=== PATIENT | male | born 1965 | race Caucasian/White ===

== ENCOUNTER 2023-06-27 12:32 | Observation (INO) ==
[2023-06-27] MEDS ORDERED: SODIUM CHLORIDE 0.9% 1000ML 2,000 ML IV ONE (13:00)
--- NOTE | 2023-06-27 13:03 | Emergency Department Note ---
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 He notes he felt fine this morning although he was a little tired. He was sitting on a zero turn and does not remember anything after that. He denies any chest pain or shortness of breath preceding this. Bystanders note that he was diaphoretic and sweaty when he passed out. Currently has no chest pain or shortness of breath. No belly pain, nausea, vomiting, or diarrhea. No dysuria, urgency, or frequency. He is a smoker. No history of diabetes, hypertension or hyperlipidemia. Previous history of a CVA. PAST MEDICAL HISTORY:See Below PAST SURGICAL HISTORY:See Below FAMILY HISTORY:See Below SOCIAL HISTORY:See Below HOME MEDICATIONS:See Below ALLERGIES:See Below VITALS:See Below PHYSICAL EXAMINATION: GENERAL: Sitting up in bed, alert, chronically ill-appearing, disheveled EYE EXAM: normal conjunctiva. PERRL and EOM's intact. OROPHARYNX: no exudate, no erythema, lips, buccal mucosa, and tongue normal and mucous membranes are moist NECK: supple, no nuchal rigidity, no adenopathy, non-tender LUNGS: Clear to auscultation. Normal chest wall mechanics HEART: no murmurs, S1 normal and S2 normal ABDOMEN: abdomen soft, non-tender, normo-active bowel sounds, no masses, no rebound or guarding. UPPER EXTREMITIES: upper extremities are grossly normal. LOWER EXTREMITIES: No pitting edema. NEURO EXAM: Normal sensorium, cranial nerves II-XII intact, normal speech, no weakness of arms, no weakness of legs. No drift. Finger to nose intact. Gross sensation intact. MEDICAL DECISION MAKING: Patient is a 58-year-old male who presents ER for above-stated complaint. IV was established blood work was obtained. Labs show mild leukocytosis 11.4 thousand. Hemoglobin of 20. BMP with a sodium of 134 and mild hypokalemia 3.2. Creatinine at 1.9 up from baseline of 0.8. T. bili elevated at 1.9. No belly pain. LFTs were unremarkable. Lipase normal. Tox was negative. Patient was given 2 L of IV fluids. He was updated bedside. He was hypoxic upon presentation was placed on 2 L nasal cannula. Chest x-ray was clean. With a negative chest x-ray and hypoxia did question DVT and consequently duplex was obtained which was negative. Unable to CT angio with a creatinine of 2. He was updated and admitted to the hospital service Dr. Harry Downey for further evaluation management treatment. Triage Nursing notes reviewed. Limited review of prior medical records performed Vital Signs: reviewed and remarkable for no significant abnormalities Differential diagnosis: Differential diagnoses includes but is not limited to pneumonia, bronchitis, COPD/Asthma exacerbation, pneumothorax, pulmonary embolism, congestive heart failure, acute coronary syndrome ER treatment provided: See below Diagnostics interpreted by me include EKG and cardiac monitoring as listed below: -Cardiac Monitoring: An order was placed for continuous cardiac monitoring. The monitor shows a rate of 90 with sinus rhythm. -ECG: Sinus tachycardia rate of 100 Septal Q waves QTc 448 -Laboratory studies:Interpreted by me as stated above in MDM and shown below. Imaging studies: Xrays: As interpreted by me: Portable AP upright 1 view of the chest shows no focal CTs show: CT of the head was negative Ultrasound venous shows no DVTs bilaterally Consultation(s): As described in [facility] Procedures:none Critical Care: I have personally spent 35 minutes of critical care time in the direct management of this patient. This includes bedside care, interpretation of diagnostic studies, and testing, discussion with consultants, patient, and family members, and other required patient management activities. This 35 minutes is in excess of all separately billable procedures. Past Med/Surg History Medical History (Updated 06/27/23 @ 19:03 by Maximo Gallegos DO) Chronic bronchitis COPD (chronic obstructive pulmonary disease) Current smoker CVA (cerebral vascular accident) Surgical History No significant past surgical history Family History (Updated 08/09/20 @ 08:27 by TONY El) Father Arthritis Hypertension Diabetes Other Allergies Cancer Denies family history of Heart disease Lung disease Asthma Social History Smoking Status: Never smoker Tobacco Type: Cigarettes packs per day: 1; Hx Alcohol Use: No Hx Substance Use: No Preferred Language: Uzbek Feels Safe at Home: Yes Allergies Allergies Allergy/AdvReac Type Severity Reaction Status Date / Time pollen extracts Allergy Unknown Unknown Verified 06/27/23 15:35 Sulfa (Sulfonamide Allergy Unknown Unknown Verified 06/27/23 15:35 Antibiotics) Home Meds Home Medications Medication Instructions Recorded Confirmed Potassium Otc 1 tab PO DAILY 06/27/23 06/27/23 albuterol sulfate 90 mcg/actuation 2 puff inhalation Q6 PRN Shortness 06/27/23 06/27/23 aerosol inhaler Of Breath Or Wheezing cholecalciferol (vitamin D3) 50 0 mcg PO DAILY 06/27/23 06/27/23 mcg (2,000 unit) tablet (Vitamin D3) ibuprofen 200 mg tablet 400 mg PO Q6H PRN Pain 06/27/23 06/27/23 multivitamin 1 tab PO DAILY 06/27/23 06/27/23 Results & Data (ED) Vital Signs Vital Signs - 24 hr 06/27/23 12:38 06/27/23 12:43 06/27/23 12:56 Temperature 36.8 C Temperature Source Oral Pulse Rate 101 H 103 H Pulse Rate [Apical] Pulse Rhythm Regular Pulse Rhythm [Apical] Pulse Strength Normal Pulse Strength [Apical] Respiratory Rate 20 Respiratory Effort / Characteristics Non-Labored Spontaneous Respiratory Depth Normal Respiratory Pattern Regular Blood Pressure 130/90 Blood Pressure [Right Arm] Blood Pressure Mean 103 Blood Pressure Mean [Right Arm] Blood Pressure Position Sitting Blood Pressure Position [Right Arm] Pulse Oximetry 92 Oxygen Delivery Method Room Air Nasal Cannula Oxygen Flow Rate Sepsis Recent Fever Within 48 Hours No Sepsis New/Unexplained Change in Mental Status No Sepsis Action Taken by Nursing No Action Required 06/27/23 12:56 06/27/23 15:04 06/27/23 16:14 Temperature 36.3 C L Temperature Source Oral Pulse Rate Pulse Rate [Apical] 94 H 84 83 Pulse Rhythm Pulse Rhythm [Apical] Regular Regular Regular Pulse Strength Pulse Strength [Apical] Normal Normal Normal Respiratory Rate 20 20 20 Respiratory Effort / Characteristics Non-Labored Spontaneous Non-Labored Spontaneous Non-Labored Spontaneous Respiratory Depth Normal Normal Normal Respiratory Pattern Regular Regular Blood Pressure Blood Pressure [Right Arm] 113/77 128/87 129/88 Blood Pressure Mean Blood Pressure Mean [Right Arm] 89 100 101 Blood Pressure Position Blood Pressure Position [Right Arm] Sitting Sitting Pulse Oximetry 92 97 95 Oxygen Delivery Method Nasal Cannula Nasal Cannula Nasal Cannula Oxygen Flow Rate 2 2 2 Sepsis Recent Fever Within 48 Hours Sepsis New/Unexplained Change in Mental Status Sepsis Action Taken by Nursing Laboratory Data 06/27/23 12:45 06/27/23 12:45 Lab Results 06/27/23 06/27/23 06/27/23 Range/Units 12:45 12:45 15:51 WBC 11.49 H (4.8-10.8) K/ul RBC 5.20 (4.70-6.10) M/uL Hgb 20.0 H (14.0-18.0) g/dl Hct 55.1 H (42.0-52.0) % MCV 106.0 H (80.0-100.0) fL MCH 38.5 H (25.0-34.0) pg MCHC 36.3 H (32.0-36.0) g/dL RDW Std Deviation 58.5 H (36.4-46.3) fL RDW Coeff of Mayra 14.9 H (11.5-14.5) % Plt Count 203 (130-400) K/uL MPV 10.6 (9.4-12.4) fL Immature Gran % (Auto) 0.3 % Neut % (Auto) 64.4 % Lymph % (Auto) 23.8 % Hart % (Auto) 9.2 % Eos % (Auto) 1.4 % Baso % (Auto) 0.9 % Neut # (Auto) 7.40 H (1.40-6.50) K/uL Lymph # (Auto) 2.73 (1.2-3.4) K/uL Hart # (Auto) 1.06 H (0.11-0.59) K/uL Eos # (Auto) 0.16 (0-0.50) K/uL Baso # (Auto) 0.10 (0-0.2) K/uL Immature Gran # (Auto) 0.04 (0.01-0.20) K/uL Sodium 134 L (136-145) mmol/L Potassium 3.2 L (3.5-5.1) mmol/L Chloride 93 L (98-107) mmol/L Carbon Dioxide 22 (21-32) mmol/L Anion Gap 19 H (3-11) BUN 11 (6-23) mg/dl Creatinine 1.95 H (0.6-1.4) mg/dl Est Cr Clr Drug Dosing Not Reportable Est GFR ( Amer) 42.1 ml/min Est GFR (Non-Af Amer) 36.3 ml/min BUN/Creatinine Ratio 5.6 L (10-20) Glucose 152 H (70-99(Fasting)) mg/dl Lactate (0.4-2.0) mmol/L Calcium 9.8 (8.6-10.3) mg/dl Total Bilirubin 1.9 H (0.2-1.0) mg/dl AST 80 H (13-39) U/L ALT 42 (7-52) U/L Alkaline Phosphatase 109 H (34-104) U/L Total Creatine Kinase 118 (30-223) U/L Troponin I High Sens 5.3 (0-20) pg/ml Total Protein 7.9 (6.0-8.3) gm/dl Albumin 4.8 (3.4-5.0) gm/dl Globulin 3.1 (2.5-4.0) gm/dl Albumin/Globulin Ratio 1.5 (0.9-2) Lipase 8 L (11-82) U/L Salicylates (3.0-30) mg/dl Acetaminophen (10-30) ug/ml Ethyl Alcohol mg/dL < 10.0 (<10.0) mg/dl 06/27/23 06/27/23 Range/Units 15:51 16:12 WBC (4.8-10.8) K/ul RBC (4.70-6.10) M/uL Hgb (14.0-18.0) g/dl Hct (42.0-52.0) % MCV (80.0-100.0) fL MCH (25.0-34.0) pg MCHC (32.0-36.0) g/dL RDW Std Deviation (36.4-46.3) fL RDW Coeff of Mayra (11.5-14.5) % Plt Count (130-400) K/uL MPV (9.4-12.4) fL Immature Gran % (Auto) % Neut % (Auto) % Lymph % (Auto) % Hart % (Auto) % Eos % (Auto) % Baso % (Auto) % Neut # (Auto) (1.40-6.50) K/uL Lymph # (Auto) (1.2-3.4) K/uL Hart # (Auto) (0.11-0.59) K/uL Eos # (Auto) (0-0.50) K/uL Baso # (Auto) (0-0.2) K/uL Immature Gran # (Auto) (0.01-0.20) K/uL Sodium (136-145) mmol/L Potassium (3.5-5.1) mmol/L Chloride (98-107) mmol/L Carbon Dioxide (21-32) mmol/L Anion Gap (3-11) BUN (6-23) mg/dl Creatinine (0.6-1.4) mg/dl Est Cr Clr Drug Dosing Est GFR ( Amer) ml/min Est GFR (Non-Af Amer) ml/min BUN/Creatinine Ratio (10-20) Glucose (70-99(Fasting)) mg/dl Lactate 1.1 (0.4-2.0) mmol/L Calcium (8.6-10.3) mg/dl Total Bilirubin (0.2-1.0) mg/dl AST (13-39) U/L ALT (7-52) U/L Alkaline Phosphatase (34-104) U/L Total Creatine Kinase (30-223) U/L Troponin I High Sens (0-20) pg/ml Total Protein (6.0-8.3) gm/dl Albumin (3.4-5.0) gm/dl Globulin (2.5-4.0) gm/dl Albumin/Globulin Ratio (0.9-2) Lipase (11-82) U/L Salicylates < 3.0 L (3.0-30) mg/dl Acetaminophen < 3 L (10-30) ug/ml Ethyl Alcohol mg/dL (<10.0) mg/dl Administered Medications Discontinued Medications Sodium Chloride (Nss 1000ml) 2,000 mls @ 999 mls/hr IV .Q2H1M ONE Stop: 06/27/23 15:00 Last Infusion: 06/27/23 16:33 Dose: 0 mls/hr Documented By: Admin: 06/27/23 13:40 Dose: 999 mls/hr Documented By: AP Sodium Chloride (Nss 1000ml) 1,000 mls @ 999 mls/hr IV .Q1H1M ONE Stop: 06/27/23 16:07 Last Admin: 06/27/23 15:47 Dose: Not Given Documented By: GERMÁN Thiamine HCl 300 mg/ Sodium (Chloride) 53 mls @ 210 mls/hr IV NOW STA Stop: 06/27/23 16:55 Last Admin: 06/27/23 17:45 Dose: 210 mls/hr Documented By: GERMÁN Potassium Chloride (Potassium Chloride Crtab 20 Meq Tabcr) 40 meq PO NOW STA Stop: 06/27/23 15:08 Last Admin: 06/27/23 15:43 Dose: 40 meq Documented By: GERMÁN Imaging Data Radiologist's Impression: Chest X-Ray 06/27/23 13:00 XR chest 1V portable HISTORY: 58 years-old Male Chest pain, nonspecific COMPARISON: 08/26/2020 TECHNIQUE: AP view of the chest FINDINGS: Cardiomediastinal and hilar silhouettes are within normal limits. No pneumothorax, pleural effusion, airspace consolidation or pulmonary edema. Mild chronic interstitial coarsening. Degenerative changes of the shoulders and spi ne. IMPRESSION: No acute process. ACT 112: Negative or not required by law. The above report was generated using voice recognition software. It may contain grammatical, syntax or spelling errors. Electronically signed by: Torsten Bates M.D. 06/27/2023 2:[address] 06/27/23 13:[address] DOSE: 547.75 mGy.cm HISTORY: Headache. TECHNIQUE: Multiaxial CT images of the head were performed without the use of intravenous contrast. Automated exposure control was utilized for this study. A dose lowering technique was utilized adhering to the principles of ALARA. Comparison: Head CT 10/17/2016. Findings: Moderate mucosal thickening within the left sphenoid sinus. Mild mucosal thickening within the left frontal sinus and left anterior ethmoid air cells. The mastoid air cells are clear. The calvarium and skull base are intact. There is no mass, hematoma, midline shift, acute infarct. White matter hypodensity is nonspecific but suggestive of microvascular ischemic change. The ventricles and sulci demonstrate mild age-related involutional changes. Old punctate lacunar infarcts again noted within the bilateral basal ganglia. This remains unchanged. Impression: No significant change compared to the prior study. No acute intracranial abnormality. ACT 112: Negative or not required by law. Electronically signed by: Singh Hilton M.D. 06/27/2023 2:48 PM Venous Doppler Study 06/27/23 14:20 BILATERAL LOWER EXTREMITY VENOUS DOPPLER HISTORY: Possible pulmonary embolus. Assess for DVT. COMPARISON STUDY: None. FINDINGS: There is normal compressibility, flow, and augmentation within the bilateral lower extremity deep venous systems. IMPRESSION: No DVT within the right or left lower extremity. ACT 112: Negative or not required by law. Electronically signed by: Singh Hilton M.D. 06/27/2023 5:04 PM Discharge Plan Visit Data Chief Complaint: Seizure Stated Complaint: ALOC, POSSIBLE SEIZURE ED Provider: Maximo Gallegos Discharge Problem: Hypoxia, Respiratory failure, Syncope, FLAKITO (acute kidney injury), Alcohol abuse, Acute hypokalemia, Elevated LFTs Forms [facility] Prescriptions Prescriptions: No Action multivitamin Tablet 1 tab PO DAILY ibuprofen 200 mg Tablet 400 mg PO Q6H PRN (Reason: Pain) albuterol sulfate 90 mcg/actuation HFA aerosol inhaler 2 puff INHALATION Q6 PRN (Reason: Shortness Of Breath Or Wheezing) cholecalciferol (vitamin D3) [Vitamin D3] 50 mcg (2,000 unit) Tablet 0 mcg PO DAILY Potassium Otc 1 tab PO DAILY Referrals Referrals: Antione Spain MD [Outside Practitioners] -
[2023-06-27 13:47] LABS: Basophils % (auto) 0.9 %; Eosinophils # (auto) 0.16 K/uL (0-0.50); Eosinophils % (auto) 1.4 %; Hematocrit (blood only) 55.1 % (42.0-52.0); Immature Granulocytes # (auto) 0.04 K/uL (0.01-0.20); Immature Granulocytes % (auto) 0.3 %; Lymphocytes # (auto) 2.73 K/uL (1.2-3.4); Lymphocytes % (auto) 23.8 %; Mean Corpuscular Hemoglobin 38.5 pg (25.0-34.0); Mean Corpuscular Hgb Conc 36.3 g/dL (32.0-36.0); Mean Platelet Volume 10.6 fL (9.4-12.4); Monocytes # (auto) 1.06 K/uL (0.11-0.59); Monocytes % (auto) 9.2 %; Neutrophils % (auto) 64.4 %; Platelet Count 203 K/uL (130-400); RDW Coefficient of Variation 14.9 % (11.5-14.5); RDW Standard Deviation 58.5 fL (36.4-46.3); White Blood Count 11.49 K/ul (4.8-10.8)
[2023-06-27 13:57] LABS: Albumin Level 4.8 gm/dl (3.4-5.0); Anion Gap 19 (3-11); Bilirubin,Total 1.9 mg/dl (0.2-1.0); Calcium 9.8 mg/dl (8.6-10.3); Carbon Dioxide 22 mmol/L (21-32); Chloride 93 mmol/L (98-107); Potassium 3.2 mmol/L (3.5-5.1); Sodium 134 mmol/L (136-145)
[2023-06-27 14:03] LABS: Alanine Aminotransferase 42 U/L (7-52); Albumin Globulin Ratio 1.5 (0.9-2); Alkaline Phosphatase 109 U/L (34-104); Aspartate Aminotransferase 80 U/L (13-39); BUN Creatinine Ratio 5.6 (10-20); Blood Urea Nitrogen 11 mg/dl (6-23); Creatine Kinase 118 U/L (30-223); Est GFR (African American) 42.1 ml/min; Est GFR (Non-African American) 36.3 ml/min; Globulin 3.1 gm/dl (2.5-4.0); Glucose 152 mg/dl (70-99(Fasting)); Lipase 8 U/L (11-82); Total Protein 7.9 gm/dl (6.0-8.3)
[2023-06-27 14:08] LABS: Troponin I High Sensitivity 5.3 pg/ml (0-20)
--- NOTE | 2023-06-27 14:13 | XRay Report ---
XR chest 1V portable HISTORY: 58 years-old Male Chest pain, nonspecific COMPARISON: 08/26/2020 TECHNIQUE: AP view of the chest FINDINGS: Cardiomediastinal and hilar silhouettes are within normal limits. No pneumothorax, pleural effusion, airspace consolidation or pulmonary edema. Mild chronic interstitial coarsening. Degenerative changes of the shoulders and spine. IMPRESSION: No acute process. ACT 112: Negative or not required by law. The above report was generated using voice recognition software. It may contain grammatical, syntax o r spelling errors. Electronically signed by: Torsten Bates M.D. 06/27/2023 2:12 PM
--- NOTE | 2023-06-27 14:49 | CT Scan Report ---
HEAD CT NONCONTRAST CT DOSE: 547.75 mGy.cm HISTORY: Headache. TECHNIQUE: Multiaxial CT images of the head were performed without the use of intravenous contrast. A utomated exposure control was utilized for this study. A dose lowering technique was utilized adheri ng to the principles of ALARA. Comparison: Head CT 10/17/2016. Findings: Moderate mucosal thickening within the left sphenoid sinus. Mild mucosal thickening within the left frontal sinus and left anterior ethmoid air cells. The mastoid air cells are clear. The calv arium and skull base are intact. There is no mass, hematoma, midline shift, acute infarct. White declan er hypodensity is nonspecific but suggestive of microvascular ischemic change. The ventricles and sul ci demonstrate mild age-related involutional changes. Old punctate lacunar infarcts again noted withi n the bilateral basal ganglia. This remains unchanged. Impression: No significant change compared to the prior study. No acute intracranial abnormality. ACT 112: Negative or not required by law. Electronically signed by: Singh Hilton M.D. 06/27/2023 2:48 PM
--- NOTE | 2023-06-27 15:06 | Electrocardiogram Report ---
Test Reason : Blood Pressure : / mmHG Vent. Rate : 100 BPM Atrial Rate : 100 BPM P-R Int : 146 ms QRS Dur : 074 ms QT Int : 348 ms P-R-T Axes : 067 006 060 degrees QTc Int : 448 ms Normal sinus rhythm Normal ECG When compared with ECG of 26-AUG-2020 01:55, No significant change Confirmed by Uri Marvin ([id number]) on 06/27/2023 3:05:49 PM Referred By: REFERRED SELF Confirmed By:Uri Marvin
[2023-06-27] MEDS ORDERED: POTASSIUM CHLORIDE CRTAB 20 MEQ TABCR PO STA (15:07)
[2023-06-27] MEDS ORDERED: SODIUM CHLORIDE 0.9% 1000ML 1,000 ML IV ONE (15:07)
--- NOTE | 2023-06-27 16:17 | History & Physical Report ---
Date of Service June 27, 2023 Assessment & Plan (1) Loss of consciousness: Plan: -Admit to med/tele -At this time it is unclear if the patient had true seizure-like activity vs syncope. No seizure-like activity since ED arrival, intake note stated that he may have had seizure-like activity but this was never confirmed -The patient's presentation, exam, and labs are more consistent with severe dehydration and likely orthostatic episode while working outside -He does have a long history of alcohol abuse, drinking 1/2 large can of Twisted Tea daily with his last drink yesterday, last drink was last night, does not appear to be in alcohol withdrawal at this time -CT head wo con negative for acute findings, ECG negative for arrhythmias -Will obtain TTE tomorrow to evaluated for valvular abnormalities -S/P 3L NSS in the ED, will give 1L LR over 12 hours as he still appears dry -Continue seizure precautions overnight and monitor on tele -Will obtain Prolactin level with repeat labs this evening for further evaluation -SQ heparin for DVT PPX -HH diet -AM CBC, CMP, Mag (2) FLAKITO (acute kidney injury): Plan: -Cr noted to be 1.95 today, cr in 2020 was 0.95 -Patient noted to be severely dehydrated today, also takes ibuprofen daily for left hip arthritis -S/P 3L NSS in the ED, will given another 1L LR on admission -Will repeat CMP and Mag this evening to ensure he is trending in the right direction -Avoid nephrotoxic agents -Monitor daily renal function and electrolytes (3) High anion gap metabolic acidosis: Plan: -AG of 19 with Bicarb of 22 -Lactate WNL, alcohol, salicylate, and acetaminophen level are negative -Likely due to severe dehydration but could also be due to starvation ketosis from poor oral intake and chronic alcohol abuse -Continue IV fluids -Will obtain UA to monitor for ketosis -Will FU on evening CMP (4) Hypoxia: Plan: -Patient noted to be hypoxic at 86% per EMS on arrival -Has been stable on 2L NC since arrival to ED -Patient was stable when I turned him to RA -Likely was some component of untreated COPD with acute alternation in mentation -Incentive spirometry, prn O2 to keep Spo2 between 89-92%, prn DuoNebs for SOB/wheezing (5) Hx TIA/stroke w/o resid: Plan: -Patient was noted to have a "small old CVA" on MRI of the brain when admitted in 2015 to [facility] -Is not on antiplatelet or lipid management -Will obtain lipid panel and A1c tomorrow for further evaluation (6) Hypokalemia: Plan: -Noted to be 3.2 on arrival -Likely due to poor oral intake -Will obtain mag level as it may be low as well -S/P 40 meq PO KCL in the ED -Will monitor electrolytes on repeat CMP tonight -Continue to monitor on tele (7) Elevated LFTs: Plan: -Total bili elevated at 1.9, AST of 80 with alk phos of 109 and ALT WNL -Likely a combination of chronic alcohol abuse and severe dehydration -Patient is without abdominal pain -Will monitor repeat CMP this evening after adequate IV hydration -Monitor AM CMP -Continue to stress alcohol cessation (8) Alcohol abuse: Plan: -Patient has a long hx of alcohol abuse -Drinks approximately 1/2 large can of twisted tea nightly -MCV elevated at 106 today bu his CBC appears very concentrated -No signs of alcohol withdrawal at this time -Monitor on tele -Will give 300 mg IV thiamine and 1g PO Folic acid on admission, continue PO tomorrow -Continue to stress the importance of cessation (9) COPD (chronic obstructive pulmonary disease): Plan: -Was previously seen by Dr. Buckner with last visit in 2019 -At that time the patient was reportedly interested in smoking cessation and was prescribed Chantix (10) Tobacco abuse: Plan: -Denies the need for nicotine patch on admission -Smoking 1/2 PPD -Continue to stress importance of cessation Plan The patient was discussed with Dr. Downey at the time of the admission History of Present Illness Chief Complaint: Possible seizure-like activity Primary Care Provider: OCHOA PCP Fabi is a 58 year old male with a PMH significant for COPD, alcohol abuse, and tobacco abuse who presented to the [facility] ED on 06/27 via EMS for possible seizure-like activity while doing yard work outside. In the ED the patient was initially noted to be tachycardic at 101 and had been placed on 2L NC by EMS for SpO2 in the mid 80's on their arrival. Labs were significant for a a CBC consistent with hemoconcentration, cr of 1.95 (baseline in 2019 was near 1.0), potassium of 3.2, chloride of 93, AG of 19 with bicarb of 22, total bili of 1.9, AST of 80, alk phos of 109. Ct of the head wo con was read as "No significant change compared to the prior study. No acute intracranial abnormality.". Chest xray was read as "No acute process.". BL LE venous dopplers were read as "No DVT within the right or left lower extremity.". Prior to admission the patient was given a total of 3L NSS and 40 meq PO KCL. At the time of the exam the patient was lying in bed in no acute distress. 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 He tries to drink lots of water daily to stay hydrated. 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 He states that "I passed out" and does not remember arriving to the ED. He does state that he felt very hot, sweaty, lightheaded, and dizzy prior to losing consciousness. 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 He is currently smoking 1/2 pack of cigarette daily and would be willing to try and quit again. He is currently drinking 1/2 of a large can of Twisted Tea daily. He has been working on reducing his alcohol consumption since his last episode of passing out in January. In January he was drinking 2-3 of the large cans of Twisted Tea Daily. When asked, he states that he was told he had "a small stoke" in the past. Per review of previous documentation the patient was admitted to [facility] back in 2015 as a transfer from [place] for Anaplasmosis, DIC, Hyponatremia, and alcohol withdrawal. Per the DC summary, the patient underwent an MRI of the Brain and MRA of the head during that admission. The DC summary lists an "Old Small CVA", the previous MRI is not available in our system. The patient is not currently on antiplatelet or therapy for cholesterol control. He states that he takes 400 mg Daily of Ibuprofen for left hip arthritis. I explained to him that frequent use of NSAID's can cause heart, Kidney, and GI damage and recommended he use it sparingly moving forward. He currently feels fatigued and thirsty but denies other complaints at this time. He denies recent fever, chills, chest pain, SOB, abd pain, nausea, vomiting, diarrhea, dysuria, hematuria, melena, LE swelling, and other recent trauma. He is a full code. Please refer to Dr. Downey's attestation for any changes to the treatment plan Allergies Allergy/AdvReac Type Severity Reaction Status Date / Time pollen extracts Allergy Unknown Unknown Verified 06/27/23 15:35 Sulfa (Sulfonamide Allergy Unknown Unknown Verified 06/27/23 15:35 Antibiotics) Home Medications Medication Instructions Recorded Confirmed Type Potassium Otc 1 tab PO DAILY 06/27/23 06/27/23 History albuterol sulfate 90 mcg/actuation 2 puff inhalation Q6 PRN Shortness 06/27/23 06/27/23 History aerosol inhaler Of Breath Or Wheezing cholecalciferol (vitamin D3) 50 0 mcg PO DAILY 06/27/23 06/27/23 History mcg (2,000 unit) tablet (Vitamin D3) ibuprofen 200 mg tablet 400 mg PO Q6H PRN Pain 06/27/23 06/27/23 History multivitamin 1 tab PO DAILY 06/27/23 06/27/23 History Past Med/Surg History Medical History (Updated 06/27/23 @ 17:53 by Scot Arellano PA-C) Chronic bronchitis COPD (chronic obstructive pulmonary disease) Current smoker CVA (cerebral vascular accident) Surgical History No significant past surgical history Family History (Updated 08/09/20 @ 08:27 by TONY El) Father Arthritis Hypertension Diabetes Other Allergies Cancer Denies family history of Heart disease Lung disease Asthma Social History Smoking Status: Never smoker Tobacco Type: Cigarettes packs per day: 1; Hx Alcohol Use: No Hx Substance Use: No Preferred Language: Ethiopian Feels Safe at Home: Yes Physical Exam Physical Exam: Physical Exam: General: In no acute distress, stated age, chronically ill-appearing but non- toxic HEENT: Normocephalic, atraumatic, no scleral icterus, pupils around round, symmetrical, and reactive to light, dry mucus membranes, trachea midline, no thyromegaly Chest/Pulm: No respiratory distress, symmetrical chest expansion, scattered expiratory wheezing Cardiac: RRR, no murmurs noted Abdomen: Negative for ascites and bruising, normoactive bowel sounds, soft, non-tender to palpation throughout Musculoskeletal: Symmetrical and without signs of acute trauma, upper and lower extremities with full ROM, no atrophy, spasticity, or flaccidity Extremities: Radial, dorsalis pedis, and posterior tibial pulses are intact and symmetrical, no edema noted in the BL LE's Skin: Warm, dry, no rashes , lesions, or scars noted Neuro: Alert and oriented to person, place, month, year, and president, no focal defects, CN II-XII tested and intact, finger to nose test negative, negative pronator drift,no tremors noted Psych: No acute distress, calm and cooperative during the exam Results & Data Results & Data Vital Signs (Past 12 Hours) Vital Signs Temp Pulse Pulse Resp BP BP Pulse Ox 06/27/23 15:04 84 20 128/87 97 06/27/23 12:56 36.3 C L 94 H 20 113/77 92 06/27/23 12:56 06/27/23 12:43 103 H 06/27/23 12:38 36.8 C 101 H 20 130/90 92 O2 Del Method O2 Flow Rate 06/27/23 15:04 Nasal Cannula 2 06/27/23 12:56 Nasal Cannula 2 06/27/23 12:56 Nasal Cannula 06/27/23 12:43 06/27/23 12:38 Room Air Laboratory Results Abnormal lab results 06/27/23 06/27/23 06/27/23 Range/Units 12:45 12:45 15:51 WBC 11.49 H (4.8-10.8) K/ul Hgb 20.0 H (14.0-18.0) g/dl Hct 55.1 H (42.0-52.0) % MCV 106.0 H (80.0-100.0) fL MCH 38.5 H (25.0-34.0) pg MCHC 36.3 H (32.0-36.0) g/dL RDW Std Deviation 58.5 H (36.4-46.3) fL RDW Coeff of Mayra 14.9 H (11.5-14.5) % Neut # (Auto) 7.40 H (1.40-6.50) K/uL [place] # (Auto) 1.06 H (0.11-0.59) K/uL Sodium 134 L (136-145) mmol/L Potassium 3.2 L (3.5-5.1) mmol/L Chloride 93 L (98-107) mmol/L Anion Gap 19 H (3-11) Creatinine 1.95 H (0.6-1.4) mg/dl BUN/Creatinine Ratio 5.6 L (10-20) Glucose 152 H (70-99(Fasting)) mg/dl Total Bilirubin 1.9 H (0.2-1.0) mg/dl AST 80 H (13-39) U/L Alkaline Phosphatase 109 H (34-104) U/L Lipase 8 L (11-82) U/L Salicylates < 3.0 L (3.0-30) mg/dl Acetaminophen < 3 L (10-30) ug/ml Diagnostic Findings Chest X-Ray 06/27/23 13:00 XR chest 1V portable HISTORY: 58 years-old Male Chest pain, nonspecific COMPARISON: 08/26/2020 TECHNIQUE: AP view of the chest FINDINGS: Cardiomediastinal and hilar silhouettes are within normal limits. No pneumothorax, pleural effusion, airspace consolidation or pulmonary edema. Mild chronic interstitial coarsening. Degenerative changes of the shoulders and spine. IMPRESSION: No acute process. ACT 112: Negative or not required by law. The above report was generated using voice recognition software. It may contain grammatical, syntax or spelling errors. Electronically signed by: Torsten Bates M.D. 06/27/2023 2:[address] 06/27/23 13:[address] DOSE: 547.75 mGy.cm HISTORY: Headache. TECHNIQUE: Multiaxial CT images of the head were performed without the use of intravenous contrast. Automated exposure control was utilized for this study. A dose lowering technique was utilized adhering to the principles of ALARA. Comparison: Head CT 10/17/2016. Findings: Moderate mucosal thickening within the left sphenoid sinus. Mild mucosal thickening within the left frontal sinus and left anterior ethmoid air cells. The mastoid air cells are clear. The calvarium and skull base are intact. There is no mass, hematoma, midline shift, acute infarct. White matter hypodensity is nonspecific but suggestive of microvascular ischemic change. The ventricles and sulci demonstrate mild age-related involutional changes. Old pu nctate lacunar infarcts again noted within the bilateral basal ganglia. This remains unchanged. Impression: No significant change compared to the prior study. No acute intracranial abnormality. ACT 112: Negative or not required by law. Electronically signed by: Singh Hilton M.D. 06/27/2023 2:48 PM ECG Additional Comments: Normal sinus rhythm Normal ECG When compared with ECG of 26-AUG-2020 01:55, No significant change Confirmed by Uri Marvin ([id number]) on 06/27/2023 3:05:49 PM Code Status & VTE Plan Code Status Full code VTE Prophylaxis Plan VTE Prophylaxis will be ordered: Yes PG Care Time/CCT Total # of Minutes Spent Total Time Spent with Patient: Total time spent is greater than 50% in coordination of care (as documented) at patient's floor/unit and/or counseling patient: Coding [place] [address] INT INP/OBS CARE 3/75MIN Patient Type Established History Comprehensive Exam Comprehensive Medical Decision Making High Complexity Diagnoses Loss of consciousness R40.20 FLAKITO (acute kidney injury) N17.9 High anion gap metabolic acidosis E87.29 Hypoxia R09.02 Hx TIA/stroke w/o resid Z86.73 Hypokalemia E87.6 Elevated LFTs R79.89 Alcohol abuse F10.10 COPD (chronic obstructive pulmonary disease) J44.9 Tobacco abuse Z72.0
[2023-06-27 16:29] LABS: Acetaminophen < 3 ug/ml (10-30); Salicylate < 3.0 mg/dl (3.0-30)
[2023-06-27] MEDS ORDERED: THIAMINE HCL 300 MG in SODIUM CHLORIDE 0.9% 50 ML IV STA (16:41)
--- NOTE | 2023-06-27 17:05 | Ultrasound Report ---
BILATERAL LOWER EXTREMITY VENOUS DOPPLER HISTORY: Possible pulmonary embolus. Assess for DVT. COMPARISON STUDY: None. FINDINGS: There is normal compressibility, flow, and augmentation within the bilateral lower extremit y deep venous systems. IMPRESSION: No DVT within the right or left lower extremity. ACT 112: Negative or not required by law. Electronically signed by: Singh Hilton M.D. 06/27/2023 5:04 PM
[2023-06-27] MEDS ORDERED: LACTATED RINGER'S 1,000 ML IV SCH (17:15)
[2023-06-27] MEDS ORDERED: ALBUT/IPRATROP 3MG/0.5MG NEB 3 ML VIAL NEB PRN (17:32)
[2023-06-27 19:44] LABS: Appearance Urine Clear (Clear); Bacteria Urine Automated Negative (Negative); Bilirubin Urine Negative (Negative); Blood Urine Trace (Negative); Color Urine Yellow; Glucose Urine UA Negative (Negative); Ketones Urine Trace (Negative); Leukocyte Esterase Urine Negative (Negative); Nitrite Urine Negative (Negative); Protein Urine Negative (Negative); RBC Urine Automated 0-4 /hpf (0-4); Specific Gravity Urine 1.007 (1.000-1.030); Urobilinogen Urine Negative (Negative)
[2023-06-27] MEDS ORDERED: ALBUTEROL HFA 8 GM INHALER INH PRN (20:12)
[2023-06-27 20:28] LABS: Alanine Aminotransferase 37 U/L (7-52); Albumin Globulin Ratio 1.5 (0.9-2); Albumin Level 4.1 gm/dl (3.4-5.0); Alkaline Phosphatase 91 U/L (34-104); Anion Gap 9 (3-11); Aspartate Aminotransferase 73 U/L (13-39); BUN Creatinine Ratio 7.3 (10-20); Bilirubin,Total 1.7 mg/dl (0.2-1.0); Blood Urea Nitrogen 9 mg/dl (6-23); Calcium 8.5 mg/dl (8.6-10.3); Carbon Dioxide 26 mmol/L (21-32); Chloride 101 mmol/L (98-107); Est GFR (African American) 72.8 ml/min; Est GFR (Non-African American) 62.8 ml/min; Globulin 2.8 gm/dl (2.5-4.0); Glucose 82 mg/dl (70-99(Fasting)); Magnesium 1.8 mg/dl (1.7-2.4); Potassium 3.5 mmol/L (3.5-5.1); Sodium 136 mmol/L (136-145); Total Protein 6.9 gm/dl (6.0-8.3)
[2023-06-27] MEDS: HEPARIN SOD 5,000 UNIT/0.5 ML VIAL SQ SCH (23:22)
[2023-06-28 07:19] LABS: Albumin Globulin Ratio 1.5 (0.9-2); Albumin Level 3.4 gm/dl (3.4-5.0); BUN Creatinine Ratio 10.1 (10-20); Bilirubin,Total 1.8 mg/dl (0.2-1.0); Calcium 8.3 mg/dl (8.6-10.3); Creatinine Clr Calc Pharmacy 79.7 ml/min; Est GFR (African American) 107.7 ml/min; Est GFR (Non-African American) 92.9 ml/min; Globulin 2.3 gm/dl (2.5-4.0); Magnesium 1.6 mg/dl (1.7-2.4); Potassium 3.3 mmol/L (3.5-5.1); Total Protein 5.7 gm/dl (6.0-8.3)
[2023-06-28 07:37] LABS: INR 1.1 (0.9-1.1); Prothrombin Time 11.9 Seconds (9.0-12.0)
--- NOTE | 2023-06-28 08:43 | XCELERA ---
[id number] \\[id number]}___[id number]
[2023-06-28] MEDS: HEPARIN SOD 5,000 UNIT/0.5 ML VIAL SQ SCH (08:54)
[2023-06-28] MEDS ORDERED: POTASSIUM CHLORIDE CRTAB 20 MEQ TABCR PO ONE (08:56)
[2023-06-28] MEDS ORDERED: FOLIC ACID 1 MG TAB PO SCH (09:00)
[2023-06-28] MEDS ORDERED: THIAMINE HCL 100 MG TAB PO SCH (09:00)
[2023-06-28 09:25] LABS: Basophils # (auto) 0.06 K/uL (0-0.2); Basophils % (auto) 0.7 %; Eosinophils # (auto) 0.17 K/uL (0-0.50); Eosinophils % (auto) 2.1 %; Hematocrit (blood only) 48.3 % (42.0-52.0); Hemoglobin 17.3 g/dl (14.0-18.0); Immature Granulocytes # (auto) 0.04 K/uL (0.01-0.20); Immature Granulocytes % (auto) 0.5 %; Lymphocytes # (auto) 1.93 K/uL (1.2-3.4); Mean Corpuscular Hgb Conc 35.8 g/dL (32.0-36.0); Mean Corpuscular Volume 106.2 fL (80.0-100.0); Mean Platelet Volume 10.8 fL (9.4-12.4); Monocytes # (auto) 0.91 K/uL (0.11-0.59); Monocytes % (auto) 11.3 %; Neutrophils # (auto) 4.92 K/uL (1.40-6.50); Neutrophils % (auto) 61.4 %; Platelet Count 167 K/uL (130-400); RDW Coefficient of Variation 14.8 % (11.5-14.5); RDW Standard Deviation 58.9 fL (36.4-46.3); Red Blood Count 4.55 M/uL (4.70-6.10); White Blood Count 8.03 K/ul (4.8-10.8)
[2023-06-28] MEDS: MAGNESIUM SULFATE / D5W 1 GM/100 ML BAG IV SCH (10:01)
--- NOTE | 2023-06-28 11:34 | Discharge Summary ---
Date of Service June 28, 2023 Admission HPI Per Admitting Provider Fabi is a 58 year old male with a PMH significant for COPD, alcohol abuse, and tobacco abuse who presented to the [facility] ED on 06/27 via EMS for possible seizure-like activity while doing yard work outside. In the ED the patient was initially noted to be tachycardic at 101 and had been placed on 2L NC by EMS for SpO2 in the mid 80's on their arrival. Labs were significant for a a CBC consistent with hemoconcentration, cr of 1.95 (baseline in 2019 was near 1.0), potassium of 3.2, chloride of 93, AG of 19 with bicarb of 22, total bili of 1.9, AST of 80, alk phos of 109. Ct of the head wo con was read as "No significant change compared to the prior study. No acute intracranial abnormality.". Chest xray was read as "No acute process.". BL LE venous dopplers were read as "No DVT within the right or left lower extremity.". Prior to admission the patient was given a total of 3L NSS and 40 meq PO KCL. At the time of the exam the patient was lying in bed in no acute distress. 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 He tries to drink lots of water daily to stay hydrated. 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 He states that "I passed out" and does not remember arriving to the ED. He does state that he felt very hot, sweaty, lightheaded, and dizzy prior to losing consciousness. 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 He is currently smoking 1/2 pack of cigarette daily and would be willing to try and quit again. He is currently drinking 1/2 of a large can of Twisted Tea daily. He has been working on reducing his alcohol consumption since his last episode of passing out in January. In January he was drinking 2-3 of the large cans of Twisted Tea Daily. When asked, he states that he was told he had "a small stoke" in the past. Per review of previous documentation the patient was admitted to [facility] back in 2016 as a transfer from [place] for Anaplasmosis, DIC, Hyponatremia, and alcohol withdrawal. Per the DC summary, the patient underwent an MRI of the Brain and MRA of the head during that admission. The DC summary lists an "Old Small CVA", the previous MRI is not available in our system. The patient is not currently on antiplatelet or therapy for cholesterol control. He states that he takes 400 mg Daily of Ibuprofen for left hip arthritis. I explained to him that frequent use of NSAID's can cause heart, Kidney, and GI damage and recommended he use it sparingly moving forward. He currently feels fatigued and thirsty but denies other complaints at this time. He denies recent fever, chills, chest pain, SOB, abd pain, nausea, vomiting, diarrhea, dysuria, hematuria, melena, LE swelling, and other recent trauma. He is a full code. Please refer to Dr. Downey's attestation for any changes to the treatment plan Principal Diagnosis Syncope due to volume depletion, acute kidney injury, hypokalemia, transient hypoxia, hypomagnesemia Discharge Exam General-alert and oriented x3, no fevers, no chills HEENT-head atraumatic and normocephalic, pupils equal and reactive to light, extraocular muscles intact Neck-no lymphadenopathy or thyromegaly, trachea midline Chest-clear to auscultation percussion. No rales wheezing or rhonchi Cardiac-regular rate and rhythm, normal S1 and S2 Abdomen-normal bowel sounds, nontender, no hepatosplenomegaly Extremities-no cyanosis, clubbing, or edema Neuro-cranial nerves II through XII intact, motor and sensory function within normal limits, strength symmetrical , no focal deficits Psych-normal affect, normal mood Discharge Data Allergies Allergy/AdvReac Type Severity Reaction Status Date / Time pollen extracts Allergy Unknown Unknown Verified 06/27/23 15:35 Sulfa (Sulfonamide Allergy Unknown Unknown Verified 06/27/23 15:35 Antibiotics) Consultations 06/27/23 15:07 ED Decision to Admit Stat Ordered Studies 06/27/23 13:04 CT head/brain wo con Stat 06/27/23 14:20 US venous doppler LE BI Stat Hospital Course (1) Loss of consciousness: Resolved. This was probably orthostatic hypotension from volume depletion causing a transient syncopal episode. He is now medically stable. No evidence of CVA and no evidence of infection. (2) FLAKITO (acute kidney injury): -Cr noted to be 1.95 today, cr in 2020 was 0.95 -Patient noted to be severely dehydrated today, also takes ibuprofen daily for left hip arthritis -S/P 3L NSS in the ED, will given another 1L LR on admission -Will repeat CMP and Mag this evening to ensure he is trending in the right direction -Avoid nephrotoxic agents -Monitor daily renal function and electrolytes (3) High anion gap metabolic acidosis: Resolved (4) Hypoxia: Resolved (5) Hx TIA/stroke w/o resid: Patient was noted to have a "small old CVA" on MRI of the brain when admitted in 2015 to [facility] . Stable. Continue current medical management (6) Hypokalemia: Supplementation ordered. (7) Elevated LFTs: Chronic. Alcohol related. Currently asymptomatic (8) Alcohol abuse: Counseled to stop drinking. No current evidence of withdrawal symptoms (9) COPD (chronic obstructive pulmonary disease): Stable. Smoking cessation recommended (10) Tobacco abuse: Smoking cessation recommended Plan Home today, June 28 Total Time Total Time Spent Total Time Spent (In Minutes): 45 minutes Discharge Plan Discharge Items Patient Disposition: Home - Self-Care Reason For Visit: SEIZURE-LIKE ACTIVITY, FLAKITO Discharge Diagnosis: Syncope due to orthostatic hypotension, volume depletion, acute kidney injury, transient hypoxia, hypokalemia, hypomagnesemia Activity: Resume your previous activity Non-emergency contact: Primary Care Provider Call non-emergency contact if: you have any medication questions Follow-up/Referrals: PCP,NO [Primary Care Provider] - Diet: Regular Addtl Attending Provider Instructions: Cessation of smoking and drinking alcohol highly recommended. Stay well- hydrated Pending Studies at Discharge: No Stand-Alone Forms: My [employer], Smoking Cessation Medications and DC Order Prescriptions: Continued multivitamin Tablet 1 tab PO DAILY ibuprofen 200 mg Tablet 400 mg PO Q6H PRN (Reason: Pain) albuterol sulfate 90 mcg/actuation HFA aerosol inhaler 2 puff INHALATION Q6 PRN (Reason: Shortness Of Breath Or Wheezing) cholecalciferol (vitamin D3) [Vitamin D3] 50 mcg (2,000 unit) Tablet 0 mcg PO DAILY Potassium Otc 1 tab PO DAILY Discharge Orders: Discharge Order (Routine); Ordered 06/28/23 Ordered By: Henry Reaves Admission Data Admit Date/Time: 06/27/23 16:36 Attending Provider: Henry Reaves Admit Provider: Harry Downey Primary Care Provider: PCP,NO Other Providers: Harry Downey Coding Level of Care Code 66171 INP/OBS DISCH >30 MIN Diagnoses Loss of consciousness R40.20 FLAKITO (acute kidney injury) N17.9 High anion gap metabolic acidosis E87.29 Hypoxia R09.02 Hx TIA/stroke w/o resid Z86.73 Hypokalemia E87.6 Elevated LFTs R79.89 Alcohol abuse F10.10 COPD (chronic obstructive pulmonary disease) J44.9 Tobacco abuse Z72.0
== END 2023-06-28 14:52 | disposition home or self-care (01) | DRG 683 ==
LOC: ED 12:32 → SUATTDRO 16:36 → EDINP 16:36 → INTOOBSV 16:36 → 2N 21:55
DX: Z91.048 Other nonmedicinal substance allergy status; E83.42 Hypomagnesemia; F10.10 Alcohol abuse, uncomplicated; R09.02 Hypoxemia; Z79.51 Long term (current) use of inhaled steroids; N17.9 Acute kidney failure, unspecified; E87.6 Hypokalemia; F17.210 Nicotine dependence, cigarettes, uncomplicated; Z79.899 Other long term (current) drug therapy; Z88.2 Allergy status to sulfonamides; R79.89 Other specified abnormal findings of blood chemistry; R17 Unspecified jaundice; R55 Syncope and collapse; E87.20 Acidosis, unspecified; Z86.73 Personal history of transient ischemic attack (TIA), and cerebral infarction without residual deficits; J44.9 Chronic obstructive pulmonary disease, unspecified

== ENCOUNTER 2023-12-27 06:33 | Inpatient (IN) ==
[2023-12-27] MEDS ORDERED: MULTI-VITAMIN INFUSION 10 ML, THIAMINE HCL 100 MG, FOLIC ACID 1 MG in SODIUM CHLORIDE 0... IV ONE (06:50)
--- NOTE | 2023-12-27 07:00 | Emergency Department Note ---
Impression & Plan Acute hypokalemia, Hypomagnesemia, Acute dehydration ED Provider Note Name: LAKEISHA MCKAY Age: 58 Sex: Male Arrives Via: Walk-In Informant: Patient ED Provider: Joseph Navarro MD Chief Complaint: Illness Impression: As per impression above Medical Decision Makin-year-old male with a past medical history of CVA, COPD and alcoholism who notes he cut cold turkey alcohol about 2 weeks ago worsening weakness fatigue since then. States has been having a fair amount of diarrhea. Denies any blood in the stool but it is dark. Patient is a bit tachycardic mildly tremulous but is in no way withdrawing by examination. Is not hypertensive and he is mentally intact. Laboratory workup obtained reveals significant electrolyte abnormalities including low potassium and low magnesium. Given his poor health status and abnormalities on workup I feel hospitalization indicated. Patient was initially given a 1 L bolus of banana bag and heart rate did start coming down some. 2 g IV mag as well as 20 mill equivalents IV potassium were ordered. Hospitalist consulted for further management. Patient is without any significant pain he has a soft nontender abdomen and denies any complaints at this time. While he does note some dark stools he has not had a bowel movement while here yet. His hemoglobin is mildly below his baseline but is not anemic at this point. Triage/Nursing Notes reviewed by Me Differential:Infection, dehydration, metabolic abnormality, hypo/hyperglycemia, electrolyte disturbance, anemia, hypoxia, cardiac sources, intracerebral event, toxicologic, neurologic, as well as other pathologies. Vital Signs: reviewed and remarkable for tachy Interventions: Banana bag 1 L IV, magnesium 2 g IV, potassium 20 milequivalents IV Labs:ED labs Reviewed by me and remarkable for multiple lab abnormalities Cardiac/Tele Monitoring: Cardiac Monitoring: An Order was placed for continuous cardiac monitoring. The monitor shows a rate of 130 with a sinus tachy rhythm. Consults:Hospitalist Plan: Disposition:Hospitalization. Condition: Good History of Present Illness: 58-year-old male arrives for evaluation of illness. Patient notes worsening weakness and chills over the last few days. Associated with dark black urine. He also notes he has been having diarrhea which is loose and junky. Diarrhea is dark but he denies it being black or bloody. Does note some cough and congestion in the last few days as well. States at times he gets some abdominal pain which goes to his back but he does not have any today. Notes he has not had much of an appetite though has been drinking some. Denies any falls, trauma, injuries. Denies any syncope, chest pain, difficulty breathing, sore throat, headache, leg swelling, rashes, bleeding/bruising or other concerning signs or symptoms. No medications prior to arrival. Patient states he has been an alcoholic his entire life. About 2 weeks ago he decided to quit and has been sober for 2 weeks. Has had some pretty bad shaking but denies any hallucinations or seizures. Past Medical History: CVA, COPD, alcoholism Home Medications: Albuterol, Zofran, potassium tabs Allergies:pollen, sulfa Vitals:Blood Pressure: 107/75, Pulse 119, RR 20, T 36.6C, O2 96% on RA Physical Exam: GENERAL: Patient is unwell appearing and in mild distress. Dehydrated appearing, mild jaundice appearing RESPIRATORY: No dyspnea. Clear to auscultation and equal bilaterally. CARDIOVASCULAR: Tachy.No murmur appreciated. GASTROINTESTINAL: Abdomen soft, non-tender, no peritonitis. EXTREMITIES: Normal motion all extremities, no cyanosis, no edema. NEUROLOGIC: Alert and oriented. No focal neurologic deficits appreciated. Mild tremor SKIN: No rash, no jaundice, no diaphoresis. PSYCH: Appropriate GCS: 15 ED Course: Times/Reassessments: Patient is stable he does feel a bit better and is agreeable to hospitalization Joseph Navarro MD Past Med/Surg History Medical History Hx TIA/stroke w/o resid Elevated LFTs Tobacco abuse Alcohol abuse Chronic bronchitis COPD (chronic obstructive pulmonary disease) Current smoker CVA (cerebral vascular accident) Surgical History No significant past surgical history Family History Father Arthritis Hypertension Diabetes Other Allergies Cancer Denies family history of Heart disease Lung disease Asthma Social History Smoking Status: Current every day smoker Tobacco Type: Cigarettes packs per day: 1; Cigarettes Per Day: 1/2 pack; Do You Dip or Chew Tobacco: No; Hx Alcohol Use: Yes Alcohol type: other Hx Substance Use: No Preferred Language: Greek Communication Ability: Effective Tank Filler Required: No Beliefs That Will Affect Care: None Current Living Situation: Alone Feels Safe at Home: Yes Assistive Devices: Nebulizer Allergies Allergies Allergy/AdvReac Type Severity Reaction Status Date / Time pollen extracts Allergy Unknown Unknown Verified 10/08/23 11:56 Sulfa (Sulfonamide Allergy Unknown Unknown Verified 10/08/23 11:56 Antibiotics) Home Meds Home Medications Medication Instructions Recorded Confirmed albuterol sulfate 90 mcg/actuation 2 puff inhalation Q6 PRN Shortness 06/27/23 12/27/23 aerosol inhaler Of Breath Or Wheezing cholecalciferol (vitamin D3) 50 2,000 mcg PO DAILY 06/27/23 12/27/23 mcg (2,000 unit) tablet (Vitamin D3) ibuprofen 200 mg tablet 400 mg PO Q6H PRN Pain 06/27/23 12/27/23 multivitamin 1 tab PO DAILY 06/27/23 12/27/23 Results & Data (ED) Vital Signs Vital Signs - 24 hr 12/27/23 06:39 12/27/23 07:16 12/27/23 08:12 Temperature 36.6 C Temperature Source Temporal Artery Scan Pulse Rate 119 H 75 Pulse Rate [Apical] 100 H Pulse Rhythm Regular Pulse Strength Normal Respiratory Rate 20 21 Respiratory Effort / Characteristics Non-Labored Spontaneous Non-Labored Spontaneous Respiratory Depth Normal Normal Blood Pressure 107/75 Blood Pressure [Right Arm] 114/86 Blood Pressure Mean 85 Blood Pressure Mean [Right Arm] 95 Blood Pressure Position Sitting Pulse Oximetry 96 93 Oxygen Delivery Method Room Air Room Air Sepsis Recent Fever Within 48 Hours No Sepsis New/Unexplained Change in Mental Status N/A Sepsis Action Taken by Nursing No Action Required 12/27/23 09:38 12/27/23 09:39 12/27/23 09:39 Temperature Temperature Source Pulse Rate Pulse Rate [Apical] 88 100 H Pulse Rhythm Pulse Strength Respiratory Rate 19 19 Respiratory Effort / Characteristics Respiratory Depth Blood Pressure Blood Pressure [Right Arm] Blood Pressure Mean Blood Pressure Mean [Right Arm] Blood Pressure Position Pulse Oximetry 93 99 Oxygen Delivery Method Room Air Room Air Sepsis Recent Fever Within 48 Hours Sepsis New/Unexplained Change in Mental Status Sepsis Action Taken by Nursing 12/27/23 11:27 12/27/23 12:28 Temperature Temperature Source Pulse Rate 78 Pulse Rate [Apical] 88 Pulse Rhythm Pulse Strength Respiratory Rate 18 Respiratory Effort / Characteristics Non-Labored Respiratory Depth Normal Blood Pressure Blood Pressure [Right Arm] 110/68 Blood Pressure Mean Blood Pressure Mean [Right Arm] 82 Blood Pressure Position Pulse Oximetry 97 Oxygen Delivery Method Room Air Sepsis Recent Fever Within 48 Hours Sepsis New/Unexplained Change in Mental Status Sepsis Action Taken by Nursing Laboratory Data 12/27/23 07:10 12/27/23 07:10 Lab Results 12/27/23 12/27/23 12/27/23 Range/Units 07:00 07:10 07:11 WBC 9.79 (4.8-10.8) K/ul RBC 4.38 L (4.70-6.10) M/uL Hgb 15.9 (14.0-18.0) g/dl Hct 44.4 (42.0-52.0) % MCV 101.4 H (80.0-100.0) fL MCH 36.3 H (25.0-34.0) pg MCHC 35.8 (32.0-36.0) g/dL RDW Std Deviation 47.5 H (36.4-46.3) fL RDW Coeff of Mayra 12.9 (11.5-14.5) % Plt Count 96 L (130-400) K/uL MPV 10.7 (9.4-12.4) fL Immature Gran % (Auto) 0.4 % Neut % (Auto) 64.6 % Lymph % (Auto) 25.0 % Rankin % (Auto) 8.1 % Eos % (Auto) 1.3 % Baso % (Auto) 0.6 % Neut # (Auto) 6.32 (1.40-6.50) K/uL Lymph # (Auto) 2.45 (1.20-3.40) K/uL Rankin # (Auto) 0.79 H (0.11-0.59) K/uL Eos # (Auto) 0.13 (0.00-0.50) K/uL Baso # (Auto) 0.06 (0.00-0.20) K/uL Immature Gran # (Auto) 0.04 (0.01-0.20) K/uL PT 12.8 H (9.0-12.0) Seconds INR 1.2 H (0.9-1.1) APTT 29 (21-31) Seconds PTT Ratio 1.0 Sodium 133 L (136-145) mmol/L Potassium 2.3 L* (3.5-5.1) mmol/L Chloride 91 L (98-107) mmol/L Carbon Dioxide 30 (21-32) mmol/L Anion Gap 12 H (3-11) BUN 7 (6-23) mg/dl Creatinine 0.74 (0.6-1.4) mg/dl Est Cr Clr Drug Dosing 88.0 ml/min Est GFR ( Amer) 116.2 ml/min Est GFR (Non-Af Amer) 100.3 ml/min BUN/Creatinine Ratio 9.5 L (10-20) Glucose 116 H (70-99(Fasting)) mg/dl Lactate 1.6 (0.4-2.0) mmol/L Calcium 9.1 (8.6-10.3) mg/dl Magnesium 0.9 L* (1.7-2.4) mg/dl Total Bilirubin 3.5 H (0.2-1.0) mg/dl Direct Bilirubin 1.4 H (0-0.2) mg/dl AST 92 H (13-39) U/L ALT 29 (7-52) U/L Alkaline Phosphatase 96 (34-104) U/L Total Creatine Kinase 117 (30-223) U/L Troponin I High Sens 6.8 (0-20) pg/ml Total Protein 7.4 (6.0-8.3) gm/dl Albumin 4.6 (3.4-5.0) gm/dl Lipase 15 (11-82) U/L Urine Color [place] Urine Appearance Clear (Clear) Urine pH 6.5 (4.5-7.5) Ur Specific [place] 1.014 (1.000-1.030) Urine Protein 1+ H (Negative) Urine Glucose (UA) Negative (Negative) Urine Ketones Trace H (Negative) Urine Blood Trace H (Negative) Urine Nitrite Positive A (Negative) Urine Bilirubin 2+ H (Negative) Urine Urobilinogen Positive H (Negative) Ur Leukocyte Esterase Trace H (Negative) Urine WBC (Auto) 1-5 (0-5) /hpf Urine RBC (Auto) 5-10 H (0-4) /hpf U Hyaline Cast (Auto) 1-5 (0-5) /lpf U Epithel Cells (Auto) >30 H (0-5) /lpf Urine Bacteria (Auto) Negative (Negative) Ur Renal Epithelial Cell 0-5 (0-5) /lpf Ethyl Alcohol mg/dL < 10.0 (<10.0) mg/dl SARS-CoV-2 (PCR) NEGATIVE (Negative) Influenza Type A (PCR) Negative (Neg) Influenza Type B (PCR) Negative (Neg) RSV (RT-PCR) Negative (Neg) Administered Medications Potassium Chloride 40 meq/ (Sodium Chloride) 1,020 mls @ 100 mls/hr IV .[id number] BRANDT Stop: 01/26/24 09:59 Last Admin: 12/27/23 10:08 Dose: 100 mls/hr Documented By: FARA Magnesium Sulfate/Dextrose (Magnesium Sulfate / D5w) 1 gm in 100 mls @ 50 mls/hr IV Q2H BRANDT Stop: 12/27/23 17:44 Last Admin: 12/27/23 11:38 Dose: 50 mls/hr Documented By: MALORIE Discontinued Medications Multivitamins 10 ml/ Thiamine HCl 100 mg/ Folic Acid 1 mg/Sodium Chloride 1,011.2 mls @ 500 mls/hr IV .Q2H2M ONE Stop: 12/27/23 08:51 Last Infusion: 12/27/23 09:52 Dose: Infused Documented By: Admin: 12/27/23 07:46 Dose: 500 mls/hr Documented By: FARA Potassium Chloride (K Jeet / Wtr) 10 meq in 100 mls @ 100 mls/hr IV Q1H [facility] Stop: 12/27/23 10:29 Last Infusion: 12/27/23 13:14 Dose: Infused Documented By: Admin: 12/27/23 10:28 Dose: 100 mls/hr Documented By: Infusion: 12/27/23 10:06 Dose: Infused Documented By: Admin: 12/27/23 09:05 Dose: 100 mls/hr Documented By: FARA Magnesium Sulfate/Dextrose (Magnesium Sulfate / D5w) 1 gm in 100 mls @ 100 mls/hr IV Q1H [facility]ANDT Stop: 12/27/23 10:27 Last Infusion: 12/27/23 11:26 Dose: Infused Documented By: Admin: 12/27/23 10:28 Dose: 100 mls/hr Documented By: Infusion: 12/27/23 10:06 Dose: Infused Documented By: Admin: 12/27/23 09:05 Dose: 100 mls/hr Documented By: FARA Discharge Plan Visit Data Chief Complaint: Hematuria Stated Complaint: BLOOD IN URINE ED Provider: Joseph Navarro Discharge Problem: Acute hypokalemia, Hypomagnesemia, Acute dehydration Forms Stand Alone Forms: [facility] [email or web address] Prescriptions Prescriptions: No Action multivitamin Tablet 1 tab PO DAILY ibuprofen 200 mg Tablet 400 mg PO Q6H PRN (Reason: Pain) albuterol sulfate 90 mcg/actuation HFA aerosol inhaler 2 puff INHALATION Q6 PRN (Reason: Shortness Of Breath Or Wheezing) cholecalciferol (vitamin D3) [Vitamin D3] 50 mcg (2,000 unit) Tablet 2,000 mcg PO DAILY Referrals Referrals: PCP,NO [Primary Care Provider] -
[2023-12-27 07:32] LABS: Appearance Urine Clear (Clear); Bacteria Urine Automated Negative (Negative); Blood Urine Trace (Negative); Color Urine Orange; Epithelial Cell Urine Auto >30 /lpf (0-5); Glucose Urine UA Negative (Negative); Ketones Urine Trace (Negative); Leukocyte Esterase Urine Trace (Negative); Nitrite Urine Positive (Negative); Protein Urine 1+ (Negative); Specific Gravity Urine 1.014 (1.000-1.030); Urobilinogen Urine Positive (Negative); pH Urine 6.5 (4.5-7.5)
[2023-12-27 07:39] LABS: Bilirubin Urine 2+ (Negative)
[2023-12-27 07:49] LABS: Renal Epithelial Cells Urine 0-5 /lpf (0-5)
[2023-12-27 08:08] LABS: Basophils # (auto) 0.06 K/uL (0.00-0.20); Basophils % (auto) 0.6 %; Eosinophils # (auto) 0.13 K/uL (0.00-0.50); Eosinophils % (auto) 1.3 %; Hematocrit (blood only) 44.4 % (42.0-52.0); Hemoglobin 15.9 g/dl (14.0-18.0); Immature Granulocytes # (auto) 0.04 K/uL (0.01-0.20); Immature Granulocytes % (auto) 0.4 %; Lymphocytes # (auto) 2.45 K/uL (1.20-3.40); Mean Corpuscular Hemoglobin 36.3 pg (25.0-34.0); Mean Corpuscular Hgb Conc 35.8 g/dL (32.0-36.0); Mean Corpuscular Volume 101.4 fL (80.0-100.0); Mean Platelet Volume 10.7 fL (9.4-12.4); Monocytes # (auto) 0.79 K/uL (0.11-0.59); Monocytes % (auto) 8.1 %; Neutrophils # (auto) 6.32 K/uL (1.40-6.50); Neutrophils % (auto) 64.6 %; Platelet Count 96 K/uL (130-400); RDW Coefficient of Variation 12.9 % (11.5-14.5); RDW Standard Deviation 47.5 fL (36.4-46.3); Red Blood Count 4.38 M/uL (4.70-6.10); White Blood Count 9.79 K/ul (4.8-10.8)
[2023-12-27 08:09] LABS: Albumin Level 4.6 gm/dl (3.4-5.0); BUN Creatinine Ratio 9.5 (10-20); Bilirubin Direct 1.4 mg/dl (0-0.2); Bilirubin,Total 3.5 mg/dl (0.2-1.0); Calcium 9.1 mg/dl (8.6-10.3); Est GFR (African American) 116.2 ml/min; Est GFR (Non-African American) 100.3 ml/min; Magnesium 0.9 mg/dl (1.7-2.4); Potassium 2.3 mmol/L (3.5-5.1); Total Protein 7.4 gm/dl (6.0-8.3); Troponin I High Sensitivity 6.8 pg/ml (0-20)
[2023-12-27 08:13] LABS: Influenza A virus by PCR Negative (Neg); Influenza B virus by PCR Negative (Neg); RSV by PCR Negative (Neg); SARS CoV2 RNA(COVID-19) Ceph NEGATIVE (Negative)
[2023-12-27 08:33] LABS: INR 1.2 (0.9-1.1); Partial Thromboplastin Time 29 Seconds (21-31); Prothrombin Time 12.8 Seconds (9.0-12.0)
[2023-12-27] MEDS ORDERED: ALUMINUM/MAGNESIUM SUSP 30 ML UDC PO PRN (09:05)
[2023-12-27] MEDS ORDERED: ACETAMINOPHEN 325 MG TAB PO PRN (09:05)
[2023-12-27] MEDS: POTASSIUM CHLORIDE / WTR 10 MEQ/100 ML PLCT IV SCH ×3 (09:05→14:10)
[2023-12-27] MEDS ORDERED: MAGNESIUM HYDROXIDE SUSP 30 ML UDC PO PRN (09:05)
[2023-12-27] MEDS ORDERED: ONDANSETRON INJ 2 MG/ML 2 ML VIAL IV PRN (09:05)
[2023-12-27] MEDS: MAGNESIUM SULFATE / D5W 1 GM/100 ML BAG IV SCH ×6 (09:05→19:01)
[2023-12-27] MEDS: POTASSIUM CHLORIDE 40 MEQ in SODIUM CHLORIDE 0.9% 1,000 ML IV SCH ×2 (10:08→21:41)
--- NOTE | 2023-12-27 14:53 | History & Physical Report ---
Date of Service December 27, 2023 Assessment & Plan (1) Acute dehydration: (2) Hypomagnesemia: (3) Acute hypokalemia: Plan This is a 58-year-old alcoholic male who claims to have quit drinking 2 weeks ago. Soon after alcohol cessation, he started going into withdrawals. He managed his withdrawals at home. As part of his withdrawals, he was vomiting and was having diarrhea. And fear of vomiting, he stopped eating and drinking. He noticed that his urine was becoming dark and he was feeling very weak and tired and thus he presented to the emergency room. 1. Electrolyte imbalances including hypokalemia and hypomagnesemia. Most likely related to nutritional deficiencies and alcohol abuse Replete aggressively Potassium on admission was 2.3. Magnesium on admission was 0.9. Patient has been started on IV fluid with 40 mEq of potassium. He is not tolerating IV potassium push and thus he was given a 40 mill equivalent of KCl tablet by mouth. He was given 20 mEq of potassium in the emergency room. In total, he has received 100 mEq of potassium He has been ordered 4 g of magnesium sulfate Monitor BMP and magnesium in a.m. 2. Dehydration The patient is clinically dehydrated although he feels much more hydrated now after receiving fluid bolus in the emergency room Will continue to hydrate Check labs in a.m. Renal function is fair 3. Vomiting and diarrhea Seems to have resolved Ordered a diet If he continues to have diarrhea, stool tests can be collected next 4. Generalized weakness This is most likely due to dehydration and electrolyte imbalances Will consult PT and OT if he is still weak after rehydration and repletion of electrolytes 5. Alcohol abuse The patient claims to have quit 2 weeks ago He has passed the withdrawal phase Monitor 6. COPD Not short of breath Not hypoxic Monitor 7. Tobacco abuse Advised on smoking cessation Full code DVT prophylaxis: Lovenox History of Present Illness Chief Complaint: Quit alcohol 2 weeks ago. Since then vomiting, diarrhea, feeling weak. Primary Care Provider: NO PCP This is a 58-year-old male with a history of alcohol abuse and alcohol withdrawal in the past who presents with the above chief complaint. The patient states that 2 weeks ago he quit drinking completely. He started withdrawing soon after and as part of his withdrawal, he started throwing up. He was unable to keep anything down. He got to a point that he stopped eating and drinking. He was not vomiting anymore in 4 days from its start. However he later started having diarrhea. He does not seem to think that the diarrhea is a big problem because he was only going once daily and it was not watery. He came to the hospital because he was very weak and noticed that his urine was becoming dark. He says that he got some fluids in the emergency room and now his urine is starting to look straw-colored again. In the emergency room, he had some screening tests done that showed a low potassium and low magnesium. He appeared to be severely dehydrated. He is thus being admitted to the hospital He says that he has passed the withdrawal phase and has completely quit alcohol. Allergies Allergy/AdvReac Type Severity Reaction Status Date / Time pollen extracts Allergy Unknown Unknown Verified 10/08/23 11:56 Sulfa (Sulfonamide Allergy Unknown Unknown Verified 10/08/23 11:56 Antibiotics) Home Medications Medication Instructions Recorded Confirmed Type albuterol sulfate 90 mcg/actuation 2 puff inhalation Q6 PRN Shortness 06/27/23 12/27/23 History aerosol inhaler Of Breath Or Wheezing cholecalciferol (vitamin D3) 50 2,000 mcg PO DAILY 06/27/23 12/27/23 History mcg (2,000 unit) tablet (Vitamin D3) ibuprofen 200 mg tablet 400 mg PO Q6H PRN Pain 06/27/23 12/27/23 History multivitamin 1 tab PO DAILY 06/27/23 12/27/23 History Past Med/Surg History Medical History Hx TIA/stroke w/o resid Elevated LFTs Tobacco abuse Alcohol abuse Chronic bronchitis COPD (chronic obstructive pulmonary disease) Current smoker CVA (cerebral vascular accident) Surgical History No significant past surgical history Family History Father Arthritis Hypertension Diabetes Other Allergies Cancer Denies family history of Heart disease Lung disease Asthma Social History Smoking Status: Current every day smoker Tobacco Type: Cigarettes packs per day: 1; Cigarettes Per Day: 1/2 pack; Do You Dip or Chew Tobacco: No; Hx Alcohol Use: Yes Alcohol type: other Hx Substance Use: No Preferred Language: Estonian Communication Ability: Effective Database Designer Required: No Beliefs That Will Affect Care: None Current Living Situation: Alone Feels Safe at Home: Yes Assistive Devices: Nebulizer Review of Systems Review of Systems: All systems reviewed & are unremarkable except as noted in Subjective Physical Exam Physical Exam: General appearance: Awake, conversant, able to answer questions appropriately. AOx3. Clinically appears dehydrated Pupils: Equally reactive to light and accommodation Neck: No masses, no thyromegaly Respiration: Clear to auscultation bilaterally. Normal effort Cardiovascular: S1-S2/regular rate and rhythm. No murmur, rubs or gallop. No edema. Abdomen: Soft, nontender, nondistended. No hepatosplenomegaly Musculoskeletal: No clubbing, no cyanosis, normal range of motion Skin: No rashes, no nodules Neuro exam: Cranial nerves intact, sensation grossly intact Psychiatric: Patient has good judgment and insight. AOx3. Mood and affect appear normal Lymphatics: No cervical or axillary lymphadenopathy noted Results & Data Results & Data Vital Signs (Past 12 Hours) Vital Signs Temp Pulse Pulse Resp BP BP Pulse Ox 12/27/23 12:28 78 12/27/23 11:27 88 18 110/68 97 12/27/23 09:39 99 12/27/23 09:39 100 H 19 12/27/23 09:38 88 19 93 12/27/23 08:12 75 12/27/23 07:16 100 H 21 114/86 93 12/27/23 06:39 36.6 C 119 H 20 107/75 96 O2 Del Method 12/27/23 12:28 12/27/23 11:27 Room Air 12/27/23 09:39 Room Air 12/27/23 09:39 12/27/23 09:38 Room Air 12/27/23 08:12 12/27/23 07:16 Room Air 12/27/23 06:39 Room Air Laboratory Results Abnormal lab results 12/27/23 12/27/23 Range/Units 07:00 07:10 RBC 4.38 L (4.70-6.10) M/uL MCV 101.4 H (80.0-100.0) fL MCH 36.3 H (25.0-34.0) pg RDW Std Deviation 47.5 H (36.4-46.3) fL Plt Count 96 L (130-400) K/uL [place] # (Auto) 0.79 H (0.11-0.59) K/uL PT 12.8 H (9.0-12.0) Seconds INR 1.2 H (0.9-1.1) Sodium 133 L (136-145) mmol/L Potassium 2.3 L* (3.5-5.1) mmol/L Chloride 91 L (98-107) mmol/L Anion Gap 12 H (3-11) BUN/Creatinine Ratio 9.5 L (10-20) Glucose 116 H (70-99(Fasting)) mg/dl Magnesium 0.9 L* (1.7-2.4) mg/dl Total Bilirubin 3.5 H (0.2-1.0) mg/dl Direct Bilirubin 1.4 H (0-0.2) mg/dl AST 92 H (13-39) U/L Urine Protein 1+ H (Negative) Urine Ketones Trace H (Negative) Urine Blood Trace H (Negative) Urine Nitrite Positive A (Negative) Urine Bilirubin 2+ H (Negative) Urine Urobilinogen Positive H (Negative) Ur Leukocyte Esterase Trace H (Negative) Urine RBC (Auto) 5-10 H (0-4) /hpf U Epithel Cells (Auto) >30 H (0-5) /lpf PG Care Time/CCT Total # of Minutes Spent Total Time Spent with Patient: Total time spent is greater than 50% in coordination of care (as documented) at patient's floor/unit and/or counseling patient: Coding Level of Care Code 08217 INT INP/OBS CARE 2/55MIN Diagnoses Acute dehydration E86.0 Hypomagnesemia E83.42 Acute hypokalemia E87.6
[2023-12-27] MEDS ORDERED: POTASSIUM CHLORIDE CRTAB 20 MEQ TABCR PO STA (15:43)
[2023-12-28 05:34] LABS: BUN Creatinine Ratio 13.8 (10-20); Calcium 8.5 mg/dl (8.6-10.3); Creatinine Clr Calc Pharmacy 112.3 ml/min; Est GFR (African American) 128.4 ml/min; Est GFR (Non-African American) 110.8 ml/min; Potassium 2.9 mmol/L (3.5-5.1)
[2023-12-28] MEDS: POTASSIUM CHLORIDE 40 MEQ in SODIUM CHLORIDE 0.9% 1,000 ML IV SCH ×2 (07:34→17:27)
[2023-12-28] MEDS: ENOXAPARIN INJ 40 MG/0.4 ML SYR SQ SCH (08:04)
[2023-12-28] MEDS ORDERED: POTASSIUM CHLORIDE CRTAB 20 MEQ TABCR PO STA (08:32)
--- NOTE | 2023-12-28 14:30 | Hospitalist Progress Note ---
Date of Service December 28, 2023 Assessment & Plan (1) Acute dehydration: (2) Hypomagnesemia: (3) Acute hypokalemia: Plan This is a 58-year-old alcoholic male who claims to have quit drinking 2 weeks ago. Soon after alcohol cessation, he started going into withdrawals. He managed his withdrawals at home. As part of his withdrawals, he was vomiting and was having diarrhea. And fear of vomiting, he stopped eating and drinking. He noticed that his urine was becoming dark and he was feeling very weak and tired and thus he presented to the emergency room. 1. Electrolyte imbalances including hypokalemia and hypomagnesemia. Most likely related to nutritional deficiencies and alcohol abuse Replete aggressively Magnesium improved after repletion Potassium improved from 2.3-2.9 Ordered oral potassium 40 mill equivalents now Increase the rate of IV fluid with potassium Monitor BMP and magnesium in a.m. 2. Dehydration Improved Will continue to hydrate Check labs in a.m. Renal function is fair 3. Vomiting and diarrhea Resolved Ordered a diet No more diarrhea, no more vomiting 4. Generalized weakness This is most likely due to dehydration and electrolyte imbalances Will consult PT and OT if he is still weak after rehydration and repletion of electrolytes 5. Alcohol abuse The patient claims to have quit 2 weeks ago He has passed the withdrawal phase Monitor 6. COPD Not short of breath Not hypoxic Monitor 7. Tobacco abuse Advised on smoking cessation Full code DVT prophylaxis: Lovenox Admission and Anticipated Discharge Date Admission Date: December 27, 2023 Subjective Patient feels better today. Denies chest pain or shortness of breath. No diarrhea. No vomiting. Eating well. Review of Systems Review of Systems: All systems reviewed & are unremarkable except as noted in Subjective Physical Exam Physical Exam: General: Awake, conversant Heart: S1, S2/regular rate and rhythm, no murmur rubs or gallops Lungs: Clear to auscultation bilaterally. Normal effort Abdomen: Soft/nontender/nondistended. No hepatosplenomegaly Extremities: No clubbing/cyanosis. No edema Behavior: Appropriate, cooperative Results & Data Results & Data Vital Signs (Past 12 Hours) Vital Signs Temp Pulse Pulse Resp BP BP Pulse Ox 12/28/23 12:00 84 12/28/23 11:54 36.9 C 84 16 127/80 12/28/23 07:34 84 18 134/91 96 12/28/23 06:01 65 16 159/93 H 94 12/28/23 04:00 61 19 12/28/23 03:45 82 17 96 12/28/23 03:45 167/108 H 12/28/23 03:44 76 16 167/108 H 96 O2 Del Method 12/28/23 12:00 12/28/23 11:54 Room Air 12/28/23 07:34 Room Air 12/28/23 06:01 12/28/23 04:00 12/28/23 03:45 12/28/23 03:45 12/28/23 03:44 Laboratory Results Abnormal lab results 12/28/23 Range/Units 04:06 Potassium 2.9 L D (3.5-5.1) mmol/L Creatinine 0.58 L (0.6-1.4) mg/dl Calcium 8.5 L (8.6-10.3) mg/dl PG Care Time/CCT Total # of Minutes Spent Total Time Spent with Patient: Total time spent is greater than 50% in coordination of care (as documented) at patient's floor/unit and/or counseling patient: Coding Level of Care Code 64252 SUB INP/OBS CARE 2/35MIN Diagnoses Acute dehydration E86.0 Hypomagnesemia E83.42 Acute hypokalemia E87.6
[2023-12-28 22:31] LABS: Adenovirus F 40/41 PCR Not Detected (NotDetected); Astrovirus PCR Not Detected (NotDetected); Campylobacter PCR Not Detected (NotDetected); Cryptosporidium PCR Not Detected (NotDetected); Cyclospora cayetanensis PCR Not Detected (NotDetected); Entamoeba histolytica PCR Not Detected (NotDetected); Enteroaggregative E.coli(EAEC) Not Detected (NotDetected); Enteropathogenic E.coli (EPEC) Not Detected (NotDetected); Enterotoxigenic E.coli (ETEC) Not Detected (NotDetected); Giardia lamblia PCR Not Detected (NotDetected); Norovirus GI/GII PCR Not Detected (NotDetected); Plesiomonas shigelloides PCR Not Detected (NotDetected); Rotavirus A PCR Not Detected (NotDetected); Salmonella PCR Not Detected (NotDetected); Sapovirus PCR Not Detected (NotDetected); Shiga-like Toxin E.coli (STEC) Not Detected (NotDetected); Shigella/Enteroinvasive E.coli Not Detected (NotDetected); Vibrio cholerae PCR Not Detected (NotDetected); Vibrio species PCR Not Detected (NotDetected); Yersinia enterocolitica PCR Not Detected (NotDetected)
[2023-12-29] MEDS: POTASSIUM CHLORIDE 40 MEQ in SODIUM CHLORIDE 0.9% 1,000 ML IV SCH ×2 (04:26→08:24)
[2023-12-29 07:53] LABS: BUN Creatinine Ratio 14.6 (10-20); Calcium 8.9 mg/dl (8.6-10.3); Creatinine Clr Calc Pharmacy 166.1 ml/min; Est GFR (African American) 148.1 ml/min; Est GFR (Non-African American) 127.8 ml/min; Magnesium 1.3 mg/dl (1.7-2.4); Potassium 3.9 mmol/L (3.5-5.1)
[2023-12-29] MEDS: MAGNESIUM SULFATE / D5W 1 GM/100 ML BAG IV SCH ×4 (08:18→14:21)
[2023-12-29] MEDS: ENOXAPARIN INJ 40 MG/0.4 ML SYR SQ SCH (08:18)
--- NOTE | 2023-12-29 10:46 | Discharge Summary ---
Date of Service December 29, 2023 Admission HPI Per Admitting Provider This is a 58-year-old male with a history of alcohol abuse and alcohol withdrawal in the past who presents with the above chief complaint. The patient states that 2 weeks ago he quit drinking completely. He started withdrawing soon after and as part of his withdrawal, he started throwing up. He was unable to keep anything down. He got to a point that he stopped eating and drinking. He was not vomiting anymore in 4 days from its start. However he later started having diarrhea. He does not seem to think that the diarrhea is a big problem because he was only going once daily and it was not watery. He came to the hospital because he was very weak and noticed that his urine was becoming dark. He says that he got some fluids in the emergency room and now his urine is starting to look straw-colored again. In the emergency room, he had some screening tests done that showed a low potassium and low magnesium. He appeared to be severely dehydrated. He is thus being admitted to the hospital He says that he has passed the withdrawal phase and has completely quit alcohol. Principal Diagnosis dehydration electrolyte imbalaces including hypokalemia and hypomagnesemia due to poor oral intake, vomiting and diarrhea generalized weakness Discharge Exam General: Awake, conversant Heart: S1, S2/regular rate and rhythm, no murmur rubs or gallops Lungs: Clear to auscultation bilaterally. Normal effort Abdomen: Soft/nontender/nondistended. No hepatosplenomegaly Extremities: No clubbing/cyanosis. No edema Behavior: Appropriate, cooperative Discharge Data Allergies Allergy/AdvReac Type Severity Reaction Status Date / Time pollen extracts Allergy Unknown Unknown Verified 10/08/23 11:56 Sulfa (Sulfonamide Allergy Unknown Unknown Verified 10/08/23 11:56 Antibiotics) Consultations 12/27/23 09:00 ED Decision to Admit Stat Hospital Course (1) Acute dehydration: (2) Hypomagnesemia: (3) Acute hypokalemia: Plan This is a 58-year-old alcoholic male who claims to have quit drinking 2 weeks ago. Soon after alcohol cessation, he started going into withdrawals. He managed his withdrawals at home. As part of his withdrawals, he was vomiting and was having diarrhea. And fear of vomiting, he stopped eating and drinking. He noticed that his urine was becoming dark and he was feeling very weak and tired and thus he presented to the emergency room. 1. Electrolyte imbalances including hypokalemia and hypomagnesemia. Most likely related to nutritional deficiencies and alcohol abuse Moreover after he quit drinking, he went into alcohol withdrawal leading to vomiting and diarrhea that made his electrolyte imbalances worse Repleted aggressively Magnesium replaced today Potassium improved Patient wishes to go home today 2. Dehydration Improved Discontinued IV fluids 3. Vomiting and diarrhea Resolved Tolerating p.o. diet No more diarrhea, no more vomiting 4. Generalized weakness This is most likely due to dehydration and electrolyte imbalances Patient is walking well 5. Alcohol abuse The patient claims to have quit 2 weeks ago He has passed the withdrawal phase Monitor 6. COPD Not short of breath Not hypoxic 7. Tobacco abuse Advised on smoking cessation Full code DVT prophylaxis: Lovenox Discharge today Total Time Total Time Spent Total Time Spent (In Minutes): 35 Discharge Plan Discharge Items Patient Disposition: Home - Self-Care Reason For Visit: WEAKNESS Discharge Diagnosis: dehydration electrolyte imbalaces including hypokalemia and hypomagnesemia generalized weakness Activity: Resume your previous activity Non-emergency contact: Primary Care Provider Call non-emergency contact if: you have any medication questions and your symptoms worsen Follow-up/Referrals: PCP,NO [Primary Care Provider] - Diet: Regular Addtl Attending Provider Instructions: Advised to follow-up with PCP in 1 week Advised to quit alcohol Advised on smoking cessation Advised to eat a balanced diet Pending Studies at Discharge: No Stand-Alone Forms: My [facility], Smoking Cessation Medications and DC Order Prescriptions: Continued multivitamin Tablet 1 tab PO DAILY ibuprofen 200 mg Tablet 400 mg PO Q6H PRN (Reason: Pain) albuterol sulfate 90 mcg/actuation HFA aerosol inhaler 2 puff INHALATION Q6 PRN (Reason: Shortness Of Breath Or Wheezing) cholecalciferol (vitamin D3) [Vitamin D3] 50 mcg (2,000 unit) Tablet 2,000 mcg PO DAILY Discharge Orders: Discharge Order (Routine); Ordered 12/29/23 Ordered By: Luis M Mathias Admission Data Admit Date/Time: 12/27/23 15:33 Attending Provider: Luis M Mathias Admit Provider: Luis M Mathias Primary Care Provider: PCP,NO Other Providers: Luis M Mathias Other Interventions: Discharge Summary Assessment (RN) Last Done: 12/29/23 11:25 Coding Level of Care Code 73812 INP/OBS DISCH >30 MIN Diagnoses Acute dehydration E86.0 Hypomagnesemia E83.42 Acute hypokalemia E87.6
== END 2023-12-29 17:01 | disposition home or self-care (01) | DRG 641 ==
LOC: ED 06:33 → SUATTDRO 15:33 → EDINP 15:33 → 2N 15:37
DX: Z86.73 Personal history of transient ischemic attack (TIA), and cerebral infarction without residual deficits; F10.20 Alcohol dependence, uncomplicated; E86.0 Dehydration; E87.6 Hypokalemia; R53.1 Weakness; Z91.048 Other nonmedicinal substance allergy status; E63.8 Other specified nutritional deficiencies; Z88.2 Allergy status to sulfonamides; J44.9 Chronic obstructive pulmonary disease, unspecified; Z11.52 Encounter for screening for COVID-19; E83.42 Hypomagnesemia; F17.210 Nicotine dependence, cigarettes, uncomplicated; R11.2 Nausea with vomiting, unspecified